=== PATIENT | male | born 1990 | race African-American/Black ===

== ENCOUNTER 2016-06-25 19:40 | Emergency (ER) | payer SELFPAY ==
[2016-06-25] MEDS ORDERED: Tetracaine HCl 0.5% Ophth Soln 2 ML Bottle ONE (20:25)
[2016-06-25] MEDS ORDERED: Fluorescein Opthalmic Strip ONE (20:25)
== END 2016-06-25 20:43 | disposition home or self-care (01) ==
LOC: NAV ERS 19:40
DX: S05.02XA Injury of conjunctiva and corneal abrasion without foreign body, left eye, initial encounter (principal); F17.210 Nicotine dependence, cigarettes, uncomplicated; Z79.891 Long term (current) use of opiate analgesic; X58.XXXA Exposure to other specified factors, initial encounter
CPT/HCPCS: 99283

== ENCOUNTER 2016-10-19 19:58 | Emergency (ER) | payer SELFPAY ==
[2016-10-19] MEDS ORDERED: Ibuprofen 200 MG TAB ONE (20:15)
== END 2016-10-19 20:40 | disposition home or self-care (01) ==
LOC: NAV ERS 19:58
DX: S39.012A Strain of muscle, fascia and tendon of lower back, initial encounter (principal); F17.210 Nicotine dependence, cigarettes, uncomplicated; X50.0XXA Overexertion from strenuous movement or load, initial encounter
CPT/HCPCS: 99282

== ENCOUNTER 2016-11-10 22:46 | Emergency (ER) | payer SELFPAY ==
[2016-11-10] MEDS ORDERED: Ibuprofen 200 MG TAB ONE (23:13)
== END 2016-11-10 23:23 | disposition home or self-care (01) ==
LOC: NAV ERS 22:46
DX: S70.12XA Contusion of left thigh, initial encounter (principal); W22.8XXA Striking against or struck by other objects, initial encounter; F17.210 Nicotine dependence, cigarettes, uncomplicated
CPT/HCPCS: 99283

== ENCOUNTER 2017-01-05 10:44 | Emergency (ER) | payer SELFPAY ==
[2017-01-05] MEDS ORDERED: Cyclobenzaprine 10 MG TAB ONE (11:37)
[2017-01-05] MEDS ORDERED: HYDROcodone/Acetaminophen 10/325 mg Tablet ONE (11:37)
== END 2017-01-05 11:41 | disposition home or self-care (01) ==
LOC: NAV ERS 10:44
DX: M54.5 Low back pain (principal); F17.210 Nicotine dependence, cigarettes, uncomplicated; X50.0XXA Overexertion from strenuous movement or load, initial encounter
CPT/HCPCS: 99283